=== PATIENT | male | born 1990 | race Caucasian/White ===

== ENCOUNTER 2021-01-23 10:16 | Emergency (ER) | payer SELFPAY ==
[~2021-01-23] VITALS: Ht 170.2 cm; Wt 72.6 kg
[2021-01-23 10:20] VITALS: BP_SYST 138
[2021-01-23 10:50] VITALS: BP_SYST 138
== END 2021-01-23 10:50 ==
LOC: SED 10:16
DX: R07.89 Other chest pain (principal); J45.909 Unspecified asthma, uncomplicated
CPT/HCPCS: 99283